=== PATIENT | male | born 1950 | race Caucasian/White ===

== ENCOUNTER 2024-09-20 09:42 | Inpatient (IN) ==
[2024-09-20] MEDS: OPTIRAY 320 125ml IV ONE (10:01)
[2024-09-20 10:07] LABS: iSTAT Creatinine 1.1 mg/dl (0.6-1.3); iSTAT Hemoglobin 14.6 g/dl (14.0-18.0); iSTAT Ionized Calcium 1.22 mmol/l (1.12-1.32); iSTAT Potassium 4.1 mmol/L (3.3-5.0)
[2024-09-20 10:08] LABS: Basophils # (auto) 0.03 K/uL (0.00-0.20); Basophils % (auto) 0.3 %; Eosinophils % (auto) 1.1 %; Hematocrit (blood only) 42.3 % (42.0-52.0); Hemoglobin 14.3 g/dl (14.0-18.0); Immature Granulocytes # (auto) 0.03 K/uL (0.01-0.20); Immature Granulocytes % (auto) 0.3 %; Lymphocytes # (auto) 2.15 K/uL (1.20-3.40); Lymphocytes % (auto) 24.1 %; Mean Corpuscular Hemoglobin 30.5 pg (25.0-34.0); Mean Corpuscular Hgb Conc 33.8 g/dL (32.0-36.0); Mean Corpuscular Volume 90.2 fL (80.0-100.0); Mean Platelet Volume 8.7 fL (9.4-12.4); Monocytes # (auto) 1.02 K/uL (0.11-0.59); Monocytes % (auto) 11.4 %; Neutrophils % (auto) 62.8 %; Platelet Count 214 K/uL (130-400); RDW Coefficient of Variation 12.6 % (11.5-14.5); RDW Standard Deviation 41.5 fL (36.4-46.3); Red Blood Count 4.69 M/uL (4.70-6.10); White Blood Count 8.93 K/ul (4.8-10.8)
[2024-09-20 10:23] LABS: Albumin Globulin Ratio 1.4 (0.9-2); Albumin Level 4.1 gm/dl (3.4-5.0); Bilirubin,Total 0.6 mg/dl (0.2-1.0); Calcium 9.5 mg/dl (8.6-10.3); Creatinine Clr Calc Pharmacy 89.6 ml/min; Magnesium 1.9 mg/dl (1.7-2.4); Potassium 4.1 mmol/L (3.5-5.1); Total Protein 7.1 gm/dl (6.0-8.3)
[2024-09-20 10:29] LABS: Troponin I High Sensitivity 4.5 pg/ml (0-20)
--- NOTE | 2024-09-20 10:30 | CT Scan Report ---
CT head/brain wo con CLINICAL HISTORY: 73 years-old Male with neuro deficit, acute stroke suspected. Acute stroke like sy mptoms TECHNIQUE: Multiple axial CT images of the head were obtained without contrast. A dose lowering tech nique was utilized adhering to the principles of ALARA. COMPARISON: CTA head of same day FINDINGS: No acute intracranial hemorrhage, midline shift, intracranial mass, hydrocephalus, territorial ischem ia or abnormal extra-axial collection. Involutional changes with probable mild chronic microvascular ischemic disease. Small hyperdense focus within the superior left frontal lobe on image 27 series 2 m ay represent a chronic infarct with preserved edge-white differentiation. The study is mildly motion degraded. The calvarium is intact. Small left frontal scalp and periorbital contusions. The paranasal sinuses, mastoid air cells, and middle ear cavities are clear. IMPRESSION: No acute intracranial abnormality. ACT 112: Negative or not required by law. The above report was generated using voice recognition software. It may contain grammatical, syntax o r spelling errors. Electronically signed by: Alex Sawant M.D. 09/20/2024 10:28 AM
[2024-09-20 10:32] LABS: Partial Thromboplastin Ratio 0.9; Partial Thromboplastin Time 25 Seconds (21-31); Prothrombin Time 10.6 Seconds (9.0-12.0)
--- NOTE | 2024-09-20 10:32 | CT Scan Report ---
CT ANGIOGRAPHY OF THE NECK WITH CONTRAST CLINICAL HISTORY: neuro deficit, acute stroke suspected COMPARISON STUDY: No previous studies for comparison. Technique: CT angiography of the carotid and vertebral arteries was obtained using Optiray and 3D rec onstruction on an independent workstation. NASCET criteria was utilized. Automated exposure control was utilized for the study. A dose lowering technique was utilized adhering to the principles of ALA RA. Findings: No cervical spine fractures are present. 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 No cervical lymphadenopathy is present. This exam is moderately compromised by suboptimal opacification and motion artifact. There is extensive noncalcified and calcified plaque wi thin the proximal left internal carotid artery which results in severe stenosis of the proximal left internal carotid artery which extends for approximately 1.8 cm. Vessel measures 0.8 mm in caliber at site of maximal narrowing and 4.9 mm distally. There is also extensive plaque within the proximal rig ht internal carotid artery which results in mild stenosis. The vessel measures 3.3 mm at site of narr owing and 5.9 mm distally. The right vertebral artery is dominant and grossly patent. The left verteb ral artery is diminutive on a congenital basis. There is no aneurysm or definite dissection within th e neck. IMPRESSION: 1. Extensive atherosclerotic plaque within the proximal left internal carotid artery which results in up to 90% stenosis of the vessel, 1.8 cm distal to vessel origin. 2. Extensive plaque within the proximal right internal carotid artery which results in 40% stenosis. 3. Dominant, patent right vertebral artery. 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 4. Exam mildly compromised by artifact, as described above. ACT 112: Negative or not required by law. Electronically signed by: Eliseo Saunders M.D. 09/20/2024 10:30 AM
--- NOTE | 2024-09-20 10:37 | CT Scan Report ---
CT cervical spine wo con CLINICAL HISTORY: 73 years-old Male with fall. Acute head and neck injury status post fall COMPARISON: Head CT of same day. TECHNIQUE: Multiple axial CT images of the cervical spine were obtained without contrast. A dose low ering technique was utilized adhering to the principles of ALARA. FINDINGS: There is pronounced ossification of the posterior longitudinal ligament extending from the C4-C5 level to the C6-C7 interspace. Mild to moderate vertebral disc space narrowing with moderate sp ondylitic spurring and facet arthrosis. Posterior disc osteophyte complex at C2-C3. Multilevel left f oraminal stenosis. No acute fracture or subluxation identified. The cervical soft tissues appear unre markable. The visualized lung apices appear clear. IMPRESSION: 1. No acute cervical spine fracture or subluxation. 2. 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 ACT 112: Negative or not required by law. The above report was generated using voice recognition software. It may contain grammatical, syntax o r spelling errors. Electronically signed by: Alex Sawant M.D. 09/20/2024 10:36 AM
--- NOTE | 2024-09-20 10:37 | XRay Report ---
XR chest 1V portable CLINICAL HISTORY: neuro deficit, acute stroke suspected COMPARISON STUDY: No previous studies for comparison. FINDINGS: Lung volumes are normal. There is no consolidation to suggest pneumonia. Left basilar densi ties favor atelectasis. There is no pneumothorax or pleural effusion. The heart is moderately enlarge d. Mediastinal contours are normal. There is no evidence for pulmonary edema. IMPRESSION: 1. No acute cardiopulmonary findings. 2. Cardiomegaly. 3. Left basilar densities which favor atelectasis. ACT 112: Negative or not required by law. Electronically signed by: Eliseo Saunders M.D. 09/20/2024 10:35 AM
--- NOTE | 2024-09-20 10:37 | CT Scan Report ---
CTA ANGIOGRAPHY OF THE HEAD CLINICAL HISTORY: neuro deficit, acute stroke suspected COMPARISON STUDY: No previous studies for comparison. TECHNIQUE: Helical axial images of the head were obtained following uneventful intravenous administr ation of 112 cc of Optiray. Sagittal and coronal reconstructions were viewed as well as maximal inten sity projections on an independent 3-D workstation. Automated exposure control was utilized for the study. A dose lowering technique was utilized adhering to the principles of ALARA. CT DOSE: 2343.78 mGy.cm FINDINGS: There is a nasal contusion as well as a left forehead contusion. No acute calvarial fractur es are identified. No acute nasal bone fractures are identified. No acute intracranial hemorrhage, mi dline shift or mass effect is present. Ventricular system is normal. Basal cisterns are patent. The b ilateral M1, M2, A1 and A2 segments are patent. Right vertebral artery is dominant. Left vertebral ar vkng is diminutive, likely on a congenital basis. IMPRESSION: 1. No large vessel occlusion. No intracranial aneurysm. 2. Nasal and left forehead contusions. No fractures. ACT 112: Negative or not required by law. Electronically signed by: Eliseo Saunders M.D. 09/20/2024 10:35 AM
--- NOTE | 2024-09-20 10:37 | Emergency Department Note ---
Impression & Plan Fall, Acute left-sided weakness, Abrasion, Carotid artery stenosis ED Provider Note Diagnosis: Fall, left-sided weakness, facial abrasions Disposition: Admission CHIEF COMPLAINT: Fall, left-sided weakness HPI: Patient is a 73-year-old male presenting with fall and left-sided weakness. Patient states he was in the parking lot of a hotel tripped and fell onto his left side. Patient has abrasions left side of his face. Patient denies being on blood thinners. Patient states while he was on the ground for 10 to 15 minutes time yelling for help he could not move his left arm or left leg. Patient states he had decreased sensation of the left arm and left leg. Patient states finally some bystander came by and helped him up and he was unstable on his feet. Patient denies any neck pain. Patient states that the strength in his left leg is completely come back to normal. 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 Patient activated as a stroke alert upon arrival in the emergency room. PAST MEDICAL HISTORY: See Below PAST SURGICAL HISTORY: See Below SOCIAL HISTORY: See Below HOME MEDICATIONS: See Below ALLERGIES: See Below VITALS: See Below PHYSICAL EXAMINATION: GENERAL: Well appearing, well nourished, NAD, non-toxic. EYE EXAM: Normal conjunctiva. OROPHARYNX: Moist mucus membranes. Grossly normal dentition. NECK: Supple, LUNGS: Clear to auscultation. Normal chest wall mechanics. HEART: NSR ABDOMEN: Abdomen soft, non-tender, normo-active bowel sounds, no masses, no rebound or guarding BACK: No CVA TTP. SKIN: Abrasions left side of face UPPER EXTREMITIES: Upper extremities are grossly normal LOWER EXTREMITIES: Grossly normal, no edema. NEURO EXAM: A&O x3,, normal speech, moves all 4 extremities PSYCH: Cooperative MEDICAL DECISION MAKING: History obtained from: Patient ER Course: Patient is 73-year-old male presenting after a fall in a parking lot just prior to arrival. Patient states he laid on the ground for 15 minutes time before someone found him. Patient states during that time patient could not move his left arm or left leg. Patient does not have any cervical thoracic or lumbar spine tenderness. Patient does have abrasions to left side of his face. Patient denies being on any blood thinners. 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 Patient's NIH at this time is 0. Patient was a stroke alert. Patient CT noncontrast shows no intracranial hemorrhage. Patient has no large vessel occlusions. Patient does have blockages of the carotid artery 90%. Patient was made aware of this finding. This finding was also discussed with hospital service. Patient seen by telestroke team please see discussion below. Initial discussion with stroke team at 10 AM. Stroke team started value patient approximately 10:30 AM, discussion with stroke neurologist at approximately 10:45 AM about official recommendations Labs (independently interpreted) are significant for: No significant electrolyte abnormalities Imaging results (independently interpreted): Chest x-ray clear EKG interpretation (independently interpreted): Normal sinus rhythm no ST segment elevation or depression Medications given: Baby aspirin Consultants: Neurologist Dr. Meyer from [place] discussed patient's presentation improving symptoms and potential fall. He saw the patient through video consultation offered TNK to the patient and patient declined. Neurology recommendations are baby aspirin, MRIs of brain and cervical spine and admission to medicine service. Triage Nursing notes reviewed and agree them. Vital Signs: reviewed and remarkable for: no significant abnormalities Past Med/Surg History Problem List (Updated 09/20/24 @ 11:53 by Lalito Muller DO) Carotid artery stenosis (Acute) Abrasion (Acute) Acute left-sided weakness (Acute) Fall (Acute) Social History Smoking Status: Never smoker Feels Safe at Home: Yes Home Meds Home Medications Medication Instructions Recorded Confirmed amlodipine 10 mg tablet 10 mg PO DAILY 09/20/24 09/20/24 bromfenac 0.07 % eye drops 1 drp ophthalmic (eye) DIRECTED 09/20/24 09/20/24 carvedilol 12.5 mg tablet 12.5 mg PO BID 09/20/24 09/20/24 doxazosin 8 mg tablet 8 mg PO DAILY 09/20/24 09/20/24 netarsudil 0.02 %-latanoprost 1 drp OPL HS 09/20/24 09/20/24 0.005 % eye drops ([facility]) olmesartan 40 1 tab PO DAILY 09/20/24 09/20/24 mg-hydrochlorothiazide 12.5 mg tablet rosuvastatin 5 mg tablet 5 mg PO DAILY 09/20/24 09/20/24 Results & Data (ED) Vital Signs Vital Signs - 24 hr 09/20/24 09:58 09/20/24 10:12 09/20/24 10:18 Temperature 36.6 C Temperature Source Skin Pulse Rate 62 69 68 Pulse Rate [Apical] Pulse Rate from SpO2 Sensor 68 Respiratory Rate 18 24 Blood Pressure 127/80 Blood Pressure [Left Arm] Blood Pressure Mean 95 Blood Pressure Mean [Left Arm] Pulse Oximetry 99 98 Oxygen Delivery Method Room Air Sepsis Recent Fever Within 48 Hours No Sepsis New/Unexplained Change in Mental Status No Sepsis Action Taken by Nursing No Action Required 09/20/24 10:31 09/20/24 10:42 Temperature Temperature Source Pulse Rate 66 Pulse Rate [Apical] 71 Pulse Rate from SpO2 Sensor Respiratory Rate 20 15 Blood Pressure 152/88 H Blood Pressure [Left Arm] 147/75 H Blood Pressure Mean 109 Blood Pressure Mean [Left Arm] 99 Pulse Oximetry 97 98 Oxygen Delivery Method Room Air Sepsis Recent Fever Within 48 Hours Sepsis New/Unexplained Change in Mental Status Sepsis Action Taken by Nursing Laboratory Data 09/20/24 09:54 09/20/24 09:54 Lab Results 09/20/24 09/20/24 Range/Units 09:51 09:54 WBC 8.93 (4.8-10.8) K/ul RBC 4.69 L (4.70-6.10) M/uL Hgb 14.3 (14.0-18.0) g/dl POC Hgb 14.6 (14.0-18.0) g/dl Hct 42.3 (42.0-52.0) % POC Hct 43 (42-52) % MCV 90.2 (80.0-100.0) fL MCH 30.5 (25.0-34.0) pg MCHC 33.8 (32.0-36.0) g/dL RDW Std Deviation 41.5 (36.4-46.3) fL RDW Coeff of Michael 12.6 (11.5-14.5) % Plt Count 214 (130-400) K/uL MPV 8.7 L (9.4-12.4) fL Immature Gran % (Auto) 0.3 % Neut % (Auto) 62.8 % Lymph % (Auto) 24.1 % [place] % (Auto) 11.4 % Eos % (Auto) 1.1 % Baso % (Auto) 0.3 % Neut # (Auto) 5.60 (1.40-6.50) K/uL Lymph # (Auto) 2.15 (1.20-3.40) K/uL Boone # (Auto) 1.02 H (0.11-0.59) K/uL Eos # (Auto) 0.10 (0.00-0.50) K/uL Baso # (Auto) 0.03 (0.00-0.20) K/uL Immature Gran # (Auto) 0.03 (0.01-0.20) K/uL PT 10.6 (9.0-12.0) Seconds INR 1.0 (0.9-1.1) APTT 25 (21-31) Seconds PTT Ratio 0.9 POC Sodium 139 (135-144) mmol/L Sodium 138 (136-145) mmol/L POC Potassium 4.1 (3.3-5.0) mmol/L Potassium 4.1 (3.5-5.1) mmol/L POC Chloride 102 (101-112) mmol/L Chloride 104 (98-107) mmol/L Carbon Dioxide 26 (21-32) mmol/L POC Total CO2 23 L (24-31) mmol/L Anion Gap 8 (3-11) POC Anion Gap 19.0 (16-25) mmol/L POC BUN 19 H (7-18) mg/dl BUN 17 (6-23) mg/dl Creatinine 1.06 (0.6-1.4) mg/dl POC Creatinine 1.1 (0.6-1.3) mg/dl Est Cr Clr Drug Dosing 89.6 ml/min eGFR 74.57 BUN/Creatinine Ratio 16.0 (10-20) Glucose 100 H (70-99(Fasting)) mg/dl POC Glucose (other) 104 H (70-99) mg/dl Calcium 9.5 (8.6-10.3) mg/dl POC Ioniz Calcium Johanny 1.22 (1.12-1.32) mmol/l Magnesium 1.9 (1.7-2.4) mg/dl Total Bilirubin 0.6 (0.2-1.0) mg/dl AST 26 (13-39) U/L ALT 24 (7-52) U/L Alkaline Phosphatase 77 (34-104) U/L Troponin I High Sens 4.5 (0-20) pg/ml Total Protein 7.1 (6.0-8.3) gm/dl Albumin 4.1 (3.4-5.0) gm/dl Globulin 3.0 (2.5-4.0) gm/dl Albumin/Globulin Ratio 1.4 (0.9-2) Blood Type A Positive Antibody Screen NEGATIVE Administered Medications Discontinued Medications Aspirin (Aspirin 81 Mg Ectab) 81 mg PO NOW STA Stop: 09/20/24 10:52 Last Admin: 09/20/24 11:15 Dose: 81 mg Documented By: Diphtheria/Pertussis/Tetanus Vacc (Diphther/Tetan/Pertus Vaccine (Tdap, Adol/Adult) 0.5ml) 0.5 ml IM .ONCE ONE Stop: 09/20/24 09:56 Last Admin: 09/20/24 10:45 Dose: Not Given Documented By: Ioversol (Optiray 320 125ml) 112 ml IV ONCE ONE Stop: 09/20/24 10:02 Last Admin: 09/20/24 10:01 Dose: 112 ml Documented By: MELCHOR Imaging Data Radiologist's Impression: Chest X-Ray 09/20/24 09:53 XR chest 1V portable CLINICAL HISTORY: neuro deficit, acute stroke suspected COMPARISON STUDY: No previous studies for comparison. FINDINGS: Lung volumes are normal. There is no consolidation to suggest pneumonia. Left basilar densities favor atelectasis. There is no pneumothorax or pleural effusion. The heart is moderately enlarged. Mediastinal contours are normal. There is no evidence for pulmonary edema. IMPRESSION: 1. No acute cardiopulmonary findings. 2. Cardiomegaly. 3. Left basilar densities which favor atelectasis. ACT 112: Negative or not required by law. Electronically signed by: Eliseo Saunders M.D. 09/20/2024 10:[address] 09/20/24 09:53 CT head/brain wo con CLINICAL HISTORY: 73 years-old Male with neuro deficit, acute stroke suspected. Acute stroke like symptoms TECHNIQUE: Multiple axial CT images of the head were obtained without contrast. A dose lowering technique was utilized adhering to the principles of ALARA. COMPARISON: CTA head of same day FINDINGS: No acute intracranial hemorrhage, midline shift, intracranial mass, hydrocephalus, territorial ischemia or abnormal extra-axial collection. Involutional changes with probable mild chronic microvascular ischemic disease. Small hyperdense focus within the superior left frontal lobe on image 27 series 2 may represent a chronic infarct with preserved edge-white differentiation. The study is mildly motion degraded. The calvarium is intact. Small left frontal scalp and periorbital contusions. The paranasal sinuses, mastoid air cells, and middle ear cavities are clear. IMPRESSION: No acute intracranial abnormality. ACT 112: Negative or not required by law. The above report was generated using voice recognition software. It may contain grammatical, syntax or spelling errors. Electronically signed by: Alex Sawant M.D. 09/20/2024 10:28 AM Head CTA 09/20/24 09:53 CTA ANGIOGRAPHY OF THE HEAD CLINICAL HISTORY: neuro deficit, acute stroke suspected COMPARISON STUDY: No previous studies for comparison. TECHNIQUE: Helical axial images of the head were obtained following uneventful intravenous administration of 112 cc of Optiray. Sagittal and coronal reconstructions were viewed as well as maximal intensity projections on an independent 3-D workstation. Automated exposure control was utilized for the study. A dose lowering technique was utilized adhering to the principles of ALARA. CT DOSE: 2343.78 mGy.cm FINDINGS: There is a nasal contusion as well as a left forehead contusion. No acute calvarial fractures are identified. No acute nasal bone fractures are identified. No acute intracranial hemorrhage, midline shift or mass effect is present. Ventricular system is normal. Basal cisterns are patent. The bilateral M1, M2, A1 and A2 segments are patent. Right vertebral artery is dominant. Left vertebral artery is diminutive, likely on a congenital basis. IMPRESSION: 1. No large vessel occlusion. No intracranial aneurysm. 2. Nasal and left forehead contusions. No fractures. ACT 112: Negative or not required by law. Electronically signed by: Eliseo Saunders M.D. 09/20/2024 10:35 AM Neck CTA 09/20/24 09:53 CT ANGIOGRAPHY OF THE NECK WITH CONTRAST CLINICAL HISTORY: neuro deficit, acute stroke suspected COMPARISON STUDY: No previous studies for comparison. Technique: CT angiography of the carotid and vertebral arteries was obtained using Optiray and 3D reconstruction on an independent workstation. NASCET criteria was utilized. Automated exposure control was utilized for the study. A dose lowering technique was utilized adhering to the principles of ALARA. Findings: No cervical spine fractures are present. 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 No cervical lymphadenopathy is present. This exam is moderately compromised by suboptimal opacification and motion artifact. There is extensive noncalcified and calcified plaque within the proximal left internal carotid artery which results in severe stenosis of the proximal left internal carotid artery which extends for approximately 1.8 cm. Vessel measures 0.8 mm in caliber at site of maximal narrowing and 4.9 mm distally. There is also extensive plaque within the proximal right internal carotid artery which results in mild stenosis. The vessel measures 3.3 mm at site of narrowing and 5.9 mm distally. The right vertebral artery is dominant and grossly patent. The left vertebral artery is diminutive on a congenital basis. There is no aneurysm or definite dissection within the neck. IMPRESSION: 1. Extensive atherosclerotic plaque within the proximal left internal carotid artery which results in up to 90% stenosis of the vessel, 1.8 cm distal to vessel origin. 2. Extensive plaque within the proximal right internal carotid artery which results in 40% stenosis. 3. Dominant, patent right vertebral artery. 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 4. Exam mildly compromised by artifact, as described above. ACT 112: Negative or not required by law. Electronically signed by: Eliseo Saunders M.D. 09/20/2024 10:[address] 09/20/24 09:55 CT cervical spine wo con CLINICAL HISTORY: 73 years-old Male with fall. Acute head and neck injury status post fall COMPARISON: Head CT of same day. TECHNIQUE: Multiple axial CT images of the cervical spine were obtained without contrast. A dose lowering technique was utilized adhering to the principles of ALARA. FINDINGS: There is pronounced ossification of the posterior longitudinal ligament extending from the C4-C5 level to the C6-C7 interspace. Mild to moderate vertebral disc space narrowing with moderate spondylitic spurring and facet arthrosis. Posterior disc osteophyte complex at C2-C3. Multilevel left foraminal stenosis. No acute fracture or subluxation identified. The cervical soft tissues appear unremarkable. The visualized lung apices appear clear. IMPRESSION: 1. No acute cervical spine fracture or subluxation. 2. 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 ACT 112: Negative or not required by law. The above report was generated using voice recognition software. It may contain grammatical, syntax or spelling errors. Electronically signed by: Alex Sawant M.D. 09/20/2024 10:36 AM Discharge Plan Visit Data Chief Complaint: Fall Stated Complaint: FELL, LAC ABOVE LT EYE, LT SIDE WEAK ED Provider: Lalito Muller Discharge Problem: Fall, Acute left-sided weakness, Abrasion, Carotid artery stenosis Patient Disposition: Admitted As Inpatient Discharge Instructions Interventions: ED Discharge Assessment Last Done: 09/20/24 11:43
[2024-09-20] MEDS: DIPHTHER/TETAN/PERTUS Vaccine (Tdap, Adol/Adult) 0.5mL IM ONE (10:45)
[2024-09-20] MEDS: ASPIRIN 81 MG ECTAB PO STA (11:15)
[2024-09-20] MEDS ORDERED: PHARMACIST DISCHARGE MED REC CONSULT PRN (11:42)
--- NOTE | 2024-09-20 13:22 | History & Physical Report ---
Date of Service September 20, 2024 Assessment & Plan (1) Carotid artery stenosis: (2) Abrasion: (3) Acute left-sided weakness: (4) Fall: (5) HTN (hypertension): (6) HLD (hyperlipidemia): Plan Assessment and plan: Rule out CVA/TIA: Bilateral carotid stenosis: Head CT negative, head CTA negative, neck CTA +90% R ICA stenosis & 40% LICA stenosis Check echo/head MRI/cervical spine MRI, consult neuro, consult vascular Check lipid panel/A1c, neurochecksno indication for TNK at this time Baby aspirin daily started, consider Plavix daily Mechanical fall: Head CT negative for acute bleed, check MRI of the cervical spine to rule out injury Check facial x-ray to rule out facial fractures Hx HLD/HTN: Increase rosuvastatin to 20 mg daily, hold hypertensive medication to allow for permissive hypertension x 24 hours A total of 60 minutes was spent on chart review/facilitating plan of care/reviewing diagnostic data/discussion with consultants Full code DVT prophylaxis: Lovenox Admission and Anticipated Discharge Date Admission Date: September 20, 2024 History of Present Illness Chief Complaint: Fall, left-sided weakness Primary Care Provider: JAVIER PCP The patient is a 73-year-old male with a past medical history of HTN, glaucoma, HLD who presents to the ED on 09/20/2024 s/p mechanical fall. Patient reports he was leaving the hotel today, he tripped over a curb and fell right on his face. He denies any dizziness/syncope prior to this. He reports after getting up he felt some left arm and left leg weakness and was unable to keep his balance. He then reported to the ED. He denies any blurry vision/headaches. He denies any prior history of strokes. The patient was a stroke alert on arrival, neuro recommended no TNK, 81 mg of aspirin and MRI of the neck and cervical spine with recent fall Chest x-ray was negative for anything acute Head CT was negative Head CTA was negative for anything acute Neck CTA showed 90% stenosis of the proximal L ICA; 40% stenosis of the right ICA Cervical spine CT was negative for acute fracture on arrival to the ED, labs are fairly unremarkable. On exam, Mild residual left upper extremity weakness noted, left lower extremity weakness has resolved. No other neurodeficits noted The patient will be admitted for rule out stroke Home Medications Medication Instructions Recorded Confirmed Type amlodipine 10 mg tablet 10 mg PO DAILY 09/20/24 09/20/24 History bromfenac 0.07 % eye drops 1 drp ophthalmic (eye) DIRECTED 09/20/24 09/20/24 History carvedilol 12.5 mg tablet 12.5 mg PO BID 09/20/24 09/20/24 History doxazosin 8 mg tablet 8 mg PO DAILY 09/20/24 09/20/24 History netarsudil 0.02 %-latanoprost 1 drp OPL HS 09/20/24 09/20/24 History 0.005 % eye drops ([facility]) olmesartan 40 1 tab PO DAILY 09/20/24 09/20/24 History mg-hydrochlorothiazide 12.5 mg tablet rosuvastatin 5 mg tablet 5 mg PO DAILY 09/20/24 09/20/24 History Past Med/Surg History Problem List (Updated 09/20/24 @ 13:17 by MARIBELL Martinez) HLD (hyperlipidemia) HTN (hypertension) Carotid artery stenosis (Acute) Abrasion (Acute) Acute left-sided weakness (Acute) Fall (Acute) Social History Smoking Status: Never smoker Feels Safe at Home: Yes Review of Systems Review of Systems: All systems reviewed & are unremarkable except as noted in HPI & below Physical Exam Constitutional: WD/WN, vitals as above Eyes: PERRL, conjunctivae normal, anicteric sclerae (Left eye red, face red and bruised) ENMT: external ear and nose normal, oropharynx normal Neck: trachea midline, no thyromegaly Respiratory: normal respiratory effort, lungs clear to auscultation Cardiovascular: RRR, no murmur, no edema Gastrointestinal (Abdomen): normal bowel sounds, soft, nontender, no hepatosplenomegaly Musculoskeletal: no cyanosis or clubbing, extremities motor strength 5/5 Skin: no rashes, warm and dry Neurologic: PERRL, EOMI, accommodation nl, no face palsy, no dysarthria (Left upper extremity weakness, no other neurodeficits) Lymphatic: no cervical or axillary lymphadenopathy Results & Data Results & Data Vital Signs (Past 12 Hours) Vital Signs Temp Pulse Pulse Resp BP BP Pulse Ox 09/20/24 11:54 09/20/24 11:54 73 21 129/64 97 09/20/24 11:19 65 22 125/58 L 98 09/20/24 10:42 66 15 152/88 H 98 09/20/24 10:31 71 20 147/75 H 97 09/20/24 10:18 68 24 98 09/20/24 10:12 36.6 C 69 18 127/80 99 09/20/24 09:58 62 Pulse Ox O2 Del Method O2 Del Method 09/20/24 11:54 97 Room Air 09/20/24 11:54 Room Air 09/20/24 11:19 Room Air 09/20/24 10:42 09/20/24 10:31 Room Air 09/20/24 10:18 09/20/24 10:12 Room Air 09/20/24 09:58 Diagnostic Findings Laboratory Results WBC 8.93 K/ul (4.8-10.8) 09/20/24 09:54 RBC 4.69 M/uL (4.70-6.10) L 09/20/24 09:54 Hgb 14.3 g/dl (14.0-18.0) 09/20/24 09:54 POC Hgb 14.6 g/dl (14.0-18.0) 09/20/24 09:54 Hct 42.3 % (42.0-52.0) 09/20/24 09:54 POC Hct 43 % (42-52) 09/20/24 09:54 MCV 90.2 fL (80.0-100.0) 09/20/24 09:54 MCH 30.5 pg (25.0-34.0) 09/20/24 09:54 MCHC 33.8 g/dL (32.0-36.0) 09/20/24 09:54 RDW Std Deviation 41.5 fL (36.4-46.3) 09/20/24 09:54 RDW Coeff of Michael 12.6 % (11.5-14.5) 09/20/24 09:54 Plt Count 214 K/uL (130-400) 09/20/24 09:54 MPV 8.7 fL (9.4-12.4) L 09/20/24 09:54 Immature Gran % (Auto) 0.3 % 09/20/24 09:54 Neut % (Auto) 62.8 % 09/20/24 09:54 Lymph % (Auto) 24.1 % 09/20/24 09:54 Rowan % (Auto) 11.4 % 09/20/24 09:54 Eos % (Auto) 1.1 % 09/20/24 09:54 Baso % (Auto) 0.3 % 09/20/24 09:54 Neut # (Auto) 5.60 K/uL (1.40-6.50) 09/20/24 09:54 Lymph # (Auto) 2.15 K/uL (1.20-3.40) 09/20/24 09:54 Rowan # (Auto) 1.02 K/uL (0.11-0.59) H 09/20/24 09:54 Eos # (Auto) 0.10 K/uL (0.00-0.50) 09/20/24 09:54 Baso # (Auto) 0.03 K/uL (0.00-0.20) 09/20/24 09:54 Immature Gran # (Auto) 0.03 K/uL (0.01-0.20) 09/20/24 09:54 PT 10.6 Seconds (9.0-12.0) 09/20/24 09:54 INR 1.0 (0.9-1.1) 09/20/24 09:54 APTT 25 Seconds (21-31) 09/20/24 09:54 PTT Ratio 0.9 09/20/24 09:54 POC Sodium 139 mmol/L (135-144) 09/20/24 09:54 Sodium 138 mmol/L (136-145) 09/20/24 09:54 POC Potassium 4.1 mmol/L (3.3-5.0) 09/20/24 09:54 Potassium 4.1 mmol/L (3.5-5.1) 09/20/24 09:54 POC Chloride 102 mmol/L (101-112) 09/20/24 09:54 Chloride 104 mmol/L (98-107) 09/20/24 09:54 Carbon Dioxide 26 mmol/L (21-32) 09/20/24 09:54 POC Total CO2 23 mmol/L (24-31) L 09/20/24 09:54 Anion Gap 8 (3-11) 09/20/24 09:54 POC Anion Gap 19.0 mmol/L (16-25) 09/20/24 09:54 POC BUN 19 mg/dl (7-18) H 09/20/24 09:54 BUN 17 mg/dl (6-23) 09/20/24 09:54 Creatinine 1.06 mg/dl (0.6-1.4) 09/20/24 09:54 POC Creatinine 1.1 mg/dl (0.6-1.3) 09/20/24 09:54 Est Cr Clr Drug Dosing 89.6 ml/min 09/20/24 09:54 eGFR 74.57 09/20/24 09:54 BUN/Creatinine Ratio 16.0 (10-20) 09/20/24 09:54 Glucose 100 mg/dl (70-99(Fasting)) H 09/20/24 09:54 POC Glucose (other) 104 mg/dl (70-99) H 09/20/24 09:54 Calcium 9.5 mg/dl (8.6-10.3) 09/20/24 09:54 POC Ioniz Calcium Johanny 1.22 mmol/l (1.12-1.32) 09/20/24 09:54 Magnesium 1.9 mg/dl (1.7-2.4) 09/20/24 09:54 Total Bilirubin 0.6 mg/dl (0.2-1.0) 09/20/24 09:54 AST 26 U/L (13-39) 09/20/24 09:54 ALT 24 U/L (7-52) 09/20/24 09:54 Alkaline Phosphatase 77 U/L (34-104) 09/20/24 09:54 Troponin I High Sens 4.5 pg/ml (0-20) 09/20/24 09:54 Total Protein 7.1 gm/dl (6.0-8.3) 09/20/24 09:54 Albumin 4.1 gm/dl (3.4-5.0) 09/20/24 09:54 Globulin 3.0 gm/dl (2.5-4.0) 09/20/24 09:54 Albumin/Globulin Ratio 1.4 (0.9-2) 09/20/24 09:54 Blood Type A Positive 09/20/24 09:51 Antibody Screen NEGATIVE 09/20/24 09:51 Impressions Chest X-Ray 09/20/24 09:53 XR chest 1V portable CLINICAL HISTORY: neuro deficit, acute stroke suspected COMPARISON STUDY: No previous studies for comparison. FINDINGS: Lung volumes are normal. There is no consolidation to suggest pneumonia. Left basilar densities favor atelectasis. There is no pneumothorax or pleural effusion. The heart is moderately enlarged. Mediastinal contours are normal. There is no evidence for pulmonary edema. IMPRESSION: 1. No acute cardiopulmonary findings. 2. Cardiomegaly. 3. Left basilar densities which favor atelectasis. ACT 112: Negative or not required by law. Electronically signed by: Eliseo Saunders M.D. 09/20/2024 10:[address] 09/20/24 09:53 CT head/brain wo con CLINICAL HISTORY: 73 years-old Male with neuro deficit, acute stroke suspected. Acute stroke like symptoms TECHNIQUE: Multiple axial CT images of the head were obtained without contrast. A dose lowering technique was utilized adhering to the principles of ALARA. COMPARISON: CTA head of same day FINDINGS: No acute intracranial hemorrhage, midline shift, intracranial mass, hydrocephalus, territorial ischemia or abnormal extra-axial collection. Involutional changes with probable mild chronic microvascular ischemic disease. Small hyperdense focus within the superior left frontal lobe on image 27 series 2 may represent a chronic infarct with preserved edge-white differentiation. The study is mildly motion degraded. The calvarium is intact. Small left frontal scalp and periorbital contusions. The paranasal sinuses, mastoid air cells, and middle ear cavities are clear. IMPRESSION: No acute intracranial abnormality. ACT 112: Negative or not required by law. The above report was generated using voice recognition software. It may contain grammatical, syntax or spelling errors. Electronically signed by: Alex Sawant M.D. 09/20/2024 10:28 AM Head CTA 09/20/24 09:53 CTA ANGIOGRAPHY OF THE HEAD CLINICAL HISTORY: neuro deficit, acute stroke suspected COMPARISON STUDY: No previous studies for comparison. TECHNIQUE: Helical axial images of the head were obtained following uneventful intravenous administration of 112 cc of Optiray. Sagittal and coronal reconstructions were viewed as well as maximal intensity projections on an independent 3-D workstation. Automated exposure control was utilized for the study. A dose lowering technique was utilized adhering to the principles of ALA RA. CT DOSE: 2343.78 mGy.cm FINDINGS: There is a nasal contusion as well as a left forehead contusion. No acute calvarial fractures are identified. No acute nasal bone fractures are identified. No acute intracranial hemorrhage, midline shift or mass effect is present. Ventricular system is normal. Basal cisterns are patent. The bilateral M1, M2, A1 and A2 segments are patent. Right vertebral artery is dominant. Left vertebral artery is diminutive, likely on a congenital basis. IMPRESSION: 1. No large vessel occlusion. No intracranial aneurysm. 2. Nasal and left forehead contusions. No fractures. ACT 112: Negative or not required by law. Electronically signed by: Eliseo Saunders M.D. 09/20/2024 10:35 AM Neck CTA 09/20/24 09:53 CT ANGIOGRAPHY OF THE NECK WITH CONTRAST CLINICAL HISTORY: neuro deficit, acute stroke suspected COMPARISON STUDY: No previous studies for comparison. Technique: CT angiography of the carotid and vertebral arteries was obtained using Optiray and 3D reconstruction on an independent workstation. NASCET criteria was utilized. Automated exposure control was utilized for the study. A dose lowering technique was utilized adhering to the principles of ALARA. Findings: No cervical spine fractures are present. 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 No cervical lymphadenopathy is present. This exam is moderately compromised by suboptimal opacification and motion artifact. There is extensive noncalcified and calcified plaque within the proximal left internal carotid artery which results in severe stenosis of the proximal left internal carotid artery which extends for approximately 1.8 cm. Vessel measures 0.8 mm in caliber at site of maximal narrowing and 4.9 mm distally. There is also extensive plaque within the proximal right internal carotid artery which results in mild stenosis. The vessel measures 3.3 mm at site of narrowing and 5.9 mm distally. The right vertebral artery is dominant and grossly patent. The left vertebral artery is diminutive on a congenital basis. There is no aneurysm or definite dissection within the neck. IMPRESSION: 1. Extensive atherosclerotic plaque within the proximal left internal carotid artery which results in up to 90% stenosis of the vessel, 1.8 cm distal to vessel origin. 2. Extensive plaque within the proximal right internal carotid artery which results in 40% stenosis. 3. Dominant, patent right vertebral artery. 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 4. Exam mildly compromised by artifact, as described above. ACT 112: Negative or not required by law. Electronically signed by: Eliseo Saunders M.D. 09/20/2024 10:[address] 09/20/24 09:55 CT cervical spine wo con CLINICAL HISTORY: 73 years-old Male with fall. Acute head and neck injury status post fall COMPARISON: Head CT of same day. TECHNIQUE: Multiple axial CT images of the cervical spine were obtained without contrast. A dose lowering technique was utilized adhering to the principles of ALARA. FINDINGS: There is pronounced ossification of the posterior longitudinal ligament extending from the C4-C5 level to the C6-C7 interspace. Mild to moderate vertebral disc space narrowing with moderate spondylitic spurring and facet arthrosis. Posterior disc osteophyte complex at C2-C3. Multilevel left foraminal stenosis. No acute fracture or subluxation identified. The cervical soft tissues appear unremarkable. The visualized lung apices appear clear. IMPRESSION: 1. No acute cervical spine fracture or subluxation. 2. 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 ACT 112: Negative or not required by law. The above report was generated using voice recognition software. It may contain grammatical, syntax or spelling errors. Electronically signed by: Alex Sawant M.D. 09/20/2024 10:36 AM Supervising Physician Co-Signing Physician Notes 73-year-old male with PMH of HTN, glaucoma, HLD presented to the ED after mechanical fall. after he got out of his car, he was walking in the curb trying to "dodge" small plants, he tripped and fell onto his face, laid there for about half an hour as he could not stand himself up. After he got help, he reported feeling numbness and tingling in all his extremities and more so on the left side and also felt left-sided weakness. He reports the numbness and tingling on the right side improved within half an hour and on the left side the weakness and tingling sensation improved in 2 to 3 hours. At bedside exam he reported almost improvement in his all the numbness/tingling/weakness sensations. No facial deviation or slurring of speech noted. Telestroke neurology evaluated, recommended baby aspirin. Recommended MRI of neck at cervical spine with MRI brain. Labs and imagings reviewed. Labs fairly WNL. CXR and CT head with no acute finding. CTA head Reveals nasal and left forehead contusions, no fractures. CTA neck 90% stenosis of the proximal left internal carotid artery and 40% stenosis of the proximal right and RIGHT artery. CT C-spine with no fracture. Other imagings final read pending. Mechanical fall, PT/OT. Rule out a stroke, neurology consult, MRI brain, MRI C-spine, lipid panel and A1c. Neurochecks. Baby aspirin daily and vascular consult per telestroke recommendation. Increase rosuvastatin to 20 Mg daily. Permissive hypertension for next 24 hours- hold bp meds. Utilize prn bp meds if SBP > 180 mmHg. speech eval. On exam: GENERAL: Alert and oriented x3. NAD, on RA. HEENT: No pallor, no icterus. Pupils equal, round and reactive to light. Oral mucosa moist. Left facial contusions noted, non tender on exam. inner upper lip cut noted. No head trauma noted. NECK: No JVD, no neck masses. HEART: S1 and S2 heard. Regular rate and rhythm. No murmur, no gallop. RESPIRATORY SYSTEM: Normal AP diameter. No accessory muscle use. No wheezing, no crackles. ABDOMEN: Soft, bowel sounds present, nontender, no distention. CENTRAL NERVOUS SYSTEM: No facial droop. Speech is clear. Obeys simple commands. Moves extremities. power 5/5 all extremities EXTREMITIES: RLE 1+ and LLE trace edema, no erythema seen. I have seen and examined the patient and have discussed the case with the provider above. I agree with the assessment and plan as stated. Time Spent: 30 min.
[2024-09-20] MEDS ORDERED: hydrALAZINE HCL 20 MG/ML VIAL IV PRN (13:40)
--- NOTE | 2024-09-20 13:48 | XRay Report ---
XR facial bones min 3V routine CLINICAL HISTORY: fall COMPARISON: Head CT and CTA of the head performed earlier today. FINDINGS: There is a minimally displaced left nasal bone fracture. No additional facial fractures ar e identified. Orbital floors are intact. No fractures are identified within visualized portions of th e calvarium. Alignment of the temporomandibular joints is anatomic. IMPRESSION: Minimally displaced left nasal bone fracture. No additional facial fractures. ACT 112: Negative or not required by law. Electronically signed by: Eliseo Saunders M.D. 09/20/2024 1:46 PM
--- NOTE | 2024-09-20 19:15 | Magnetic Resonance Report ---
Exam(s): MRI HEAD Without Contrast EXAM: MR Head Without Intravenous Contrast CLINICAL HISTORY: Reason for exam: r/o mri. TECHNIQUE: Magnetic resonance images of the head/brain without intravenous contrast in multiple planes. COMPARISON: CT 09/20/24 FINDINGS: Brain: No diffusion restriction to suggest acute cerebral ischemia. No acute intracranial hemorrhage. No mass-effect or shift. Proximal intracranial flow voids appear normal, with a dominant right vertebral artery. Parenchymal volume normal for age. 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 Scattered FLAIR signal hyperintensity in the cerebral white matter consistent with mild chronic small vessel ischemic change. Ventricles: Unremarkable. No hydrocephalus. Bones/joints: Unremarkable. No acute fracture. Sinuses: Unremarkable as visualized. Mastoid air cells: Unremarkable as visualized. No mastoid effusion. Orbits: Right intraocular lens replacement. IMPRESSION: No acute findings in the head/brain. Electronically signed by: Yon Turner M.D. 09/20/24 19:14 PM
--- NOTE | 2024-09-20 20:07 | Magnetic Resonance Report ---
Exam(s): MRI C SPINE EXAM: MR Cervical Spine Without Intravenous Contrast CLINICAL HISTORY: Reason for exam: fall - stroke alert. TECHNIQUE: Magnetic resonance images of the cervical spine without intravenous contrast in multiple planes. COMPARISON: CT C-spine 09/20/2024 FINDINGS: Ossification of the posterior longitudinal ligament from C4-C7. No acute fracture or spondylolisthesis. Multilevel high-grade canal stenosis but no cord signal abnormality identified. C2-C3: Disc osteophyte complex abutting the ventral cord. Mild canal stenosis. No foraminal stenosis. C3-4: Diffuse disc bulge compressing the cord. Severe canal stenosis. Mild bilateral foraminal stenosis. C4-5: Large left paracentral disc osteophyte and OPLL. Severe spinal canal stenosis. Severe left and mild right foraminal stenosis. C5-6: Left paracentral disc osteophyte and OPLL. Severe spinal canal stenosis. Severe left and moderate right foraminal stenosis. C6-7: Left paracentral disc osteophyte and OPLL. Severe spinal canal stenosis. Severe left and moderate right foraminal stenosis. C7-T1: Trace disc osteophyte. No spinal canal stenosis. No significant foraminal stenosis. 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 No cord signal abnormality. Electronically signed by: Nj Dominguez MD 09/20/24 20:06 PM
[2024-09-21 03:31] VITALS: RESP 18
[2024-09-21 06:36] LABS: Basophils # (auto) 0.04 K/uL (0.00-0.20); Basophils % (auto) 0.5 %; Eosinophils % (auto) 1.2 %; Hematocrit (blood only) 39.2 % (42.0-52.0); Hemoglobin 13.6 g/dl (14.0-18.0); Immature Granulocytes # (auto) 0.03 K/uL (0.01-0.20); Immature Granulocytes % (auto) 0.4 %; Lymphocytes # (auto) 1.88 K/uL (1.20-3.40); Lymphocytes % (auto) 22.4 %; Mean Corpuscular Hgb Conc 34.7 g/dL (32.0-36.0); Mean Corpuscular Volume 89.3 fL (80.0-100.0); Monocytes # (auto) 0.86 K/uL (0.11-0.59); Monocytes % (auto) 10.3 %; Neutrophils # (auto) 5.48 K/uL (1.40-6.50); Neutrophils % (auto) 65.2 %; Platelet Count 215 K/uL (130-400); RDW Coefficient of Variation 12.7 % (11.5-14.5); RDW Standard Deviation 41.8 fL (36.4-46.3); Red Blood Count 4.39 M/uL (4.70-6.10); White Blood Count 8.39 K/ul (4.8-10.8)
[2024-09-21 06:50] LABS: BUN Creatinine Ratio 16.7 (10-20); Chol HDL Ratio 3.1 (0-5); Creatinine Clr Calc Pharmacy 120.5 ml/min; Potassium 3.5 mmol/L (3.5-5.1)
[2024-09-21 06:59] LABS: Estimated Average Glucose 111 mg/dl; Hemoglobin A1C 5.5 % (4.5-5.6)
[2024-09-21] MEDS: ENOXAPARIN INJ 40 MG/0.4 ML SYR SQ SCH (08:36)
[2024-09-21] MEDS: ASPIRIN 81 MG CHEW PO SCH (08:37)
[2024-09-21 09:04] VITALS: O2SAT 97
[2024-09-21] MEDS: ROSUVASTATIN CALCIUM 20 MG TAB PO SCH (09:52)
--- NOTE | 2024-09-21 11:12 | Neurology Consultation ---
Date of Consultation September 21, 2024 Assessment & Plan (1) Carotid artery stenosis: Joe Wiggins is a 73 yo M presenting with L sided weakness after a fall. Unclear if this was a TIA secondary to his R ICA stenosis or more likely, related to his C-spine as he continues to have L hand weakness despite a neg ative MRI. Recommend the following as he is from [place]. -- Local spine surgery follow-up +/- EMG of the LUE -- Local vascular surgery follow-up for the carotid -- Local neurology follow-up -- Continue aspirin and plavix until seen by surgery -- Continue Crestor -- Please contact us with any further questions Telehealth Consultation Telehealth Information Telehealth Information: I performed this visit using a real-time telehealth connection between my location and the patients location ([facility]). After connecting through interactive tele-video, patient was identified by name and date of and/or wristband check.Patient (or authorized healthcare warehouse representative) was informed that this was a telemedicine visit and it was being conducted confidentially over secure lines. My office door was closed and no one else was present in the room with me.Patient (or authorized healthcare warehouse representative) provided consent to proceed with the visit, expressed an understanding of privacy and security of the telemedicine visit, and gave permission to have a hospital warehouse representative in the room in order to assist with the visit and to conduct portions of the visit, as needed. I informed the patient (or authorized healthcare warehouse representative) that I reviewed their record and presented the opportunity for them to ask any questions regarding the visit today. The patient agreed to participate. History of Present Illness Reason for Consultation: L sided weakness Requesting Physician: Dr. Fierro Attending Physician: Haseeb Fierro, DO History of Present Illness Joe Wiggins is a 73 yo M presenting with a fall yesterday with transient L sided weakness. The patient laid on the ground for 30 minutes before being assisted by bystanders. He reports difficulty with his balance over the last few months but worse recently. He has been able to get up and ambulate today. He also reports ongoing L hand weakness but no neck pain or shooting pain/radicular pain into the arm. He lives in [place] and plans to go back as soon as he is released. No hx of stroke in the past, and was not taking any antiplatelet prior to admission. Allergies Allergy/AdvReac Type Severity Reaction Status Date / Time Penicillins Allergy Unknown Verified 09/20/24 21:01 Home Medications Medication Instructions Recorded Confirmed Type amlodipine 10 mg tablet 10 mg PO DAILY 09/20/24 09/20/24 History bromfenac 0.07 % eye drops 1 drp ophthalmic (eye) DIRECTED 09/20/24 09/20/24 History carvedilol 12.5 mg tablet 12.5 mg PO BID 09/20/24 09/20/24 History doxazosin 8 mg tablet 8 mg PO DAILY 09/20/24 09/20/24 History netarsudil 0.02 %-latanoprost 1 drp OPL HS 09/20/24 09/20/24 History 0.005 % eye drops ([facility]) olmesartan 40 1 tab PO DAILY 09/20/24 09/20/24 History mg-hydrochlorothiazide 12.5 mg tablet rosuvastatin 5 mg tablet 5 mg PO DAILY 09/20/24 09/20/24 History Patient History Social History Smoking Status: Never smoker Second Hand Exposure: No; Do You Dip or Chew Tobacco: No; Hx Alcohol Use: Yes Alcohol type: beer Hx Substance Use: No Preferred Language: Uzbek Communication Ability: Effective Quiller Operator Required: No Beliefs That Will Affect Care: None Current Living Situation: Significant Other Feels Safe at Home: Yes Assistive Devices: Glasses Review of Systems + L hand weakness Physical Exam Neurological Examination: Mental Status: Awake and alert. Oriented to person, place, and time. Fluent. Comprehension intact. Affect appropriate. Cranial Nerves: II: pupils 3/3 to 2/2, fregoso grossly intact. III/IV/: Versions intact without nystagmus, no gaze preference. V: Facial sensation symmetric to light touch VII: Facial expression symmetric VIII: Hearing intact to voice Motor: Strength was symmetric and antigravity throughout. Sensory: Sensation to light touch was intact. Coordination: Finger to nose and heel to merrill were intact. Reflexes: Unable to assess over telemedicine Results & Data Vital Signs (Past 12 Hours) Vital Signs Temp Pulse Resp BP Pulse Ox O2 Del Method 09/21/24 09:01 37 C 67 18 116/67 97 Room Air 09/21/24 03:30 36.6 C 73 18 127/64 96 Room Air 09/20/24 23:31 36.3 C L 65 19 122/67 96 Room Air Laboratory Results Abnormal lab results 09/21/24 Range/Units 05:53 RBC 4.39 L (4.70-6.10) M/uL Hgb 13.6 L (14.0-18.0) g/dl Hct 39.2 L (42.0-52.0) % MPV 9.0 L (9.4-12.4) fL [place] # (Auto) 0.86 H (0.11-0.59) K/uL Glucose 108 H (70-99(Fasting)) mg/dl Diagnostic Findings MRI brain - Unremarkable MR C-spine - significant cervical stenosis CTA - Severe R ICA stenosis
[2024-09-21 11:17] VITALS: BP 107/63; PULSE 62; TEMP 98.4
[2024-09-21] MEDS: STROKE PATIENT DISCHARGE STA (12:54)
--- NOTE | 2024-09-21 13:02 | Pharmacy Report ---
- Date of Service September 21, 2024 - Pharmacy CVA/TIA Medication Review Medications to Prevent Stroke handout has been added to the patients discharge packet. Antiplatelet(s) * Aspirin 81 mg po daily * Plavix 75 mg po daily Cholesterol * High intensity statin: rosuvastatin 20 mg daily DVT Prophylaxis * SCD knee Therapeutic Anticoagulation * No history of Afib/Aflutter noted Type 2 Diabetes * Patient does not have T2DM
--- NOTE | 2024-09-21 14:04 | Discharge Summary ---
Discharge Summary Date of Service September 21, 2024 HOSPITAL COURSE: Pt was admitted to the telemetry unit. He was place on ASA and Plavix. Brain MRI was negative for stroke. Neurology was consulted. TNK was not indicated. Head CT negative, head CTA negative, neck CTA showed +90% R ICA stenosis & 40% LICA stenosis. Echo showed a normal LVEF. Cervial spine MRI showed severe stenosis. Neurology felt his hand weakness was more from the stenosis. His Crestor does was increased to 20 mg daily. Neurology recommended Vascular Surgery and Spine surgery follow up in addition to an EMG as an out patient. PT and OT were consulted. He was sable for discharge on this date. He was using a wheeled walker. Principal Dx & Hospital Course #1 = Principal Diagnosis (1) Carotid artery stenosis: (2) Abrasion: (3) Acute left-sided weakness: (4) Fall: (5) HTN (hypertension): (6) HLD (hyperlipidemia): Plan Assessment and plan: Rule out CVA/TIA: Bilateral carotid stenosis: Head CT negative, head CTA negative, neck CTA +90% R ICA stenosis & 40% LICA stenosis Check echo/head MRI/cervical spine MRI, consult neuro, consult vascular Check lipid panel/A1c, neurochecksno indication for TNK at this time Baby aspirin daily started, consider Plavix daily Mechanical fall: Head CT negative for acute bleed, check MRI of the cervical spine to rule out injury Check facial x-ray to rule out facial fractures Hx HLD/HTN: Increase rosuvastatin to 20 mg daily, hold hypertensive medication to allow for permissive hypertension x 24 hours A total of 55 minutes was spent on chart review/facilitating plan of care/reviewing diagnostic data/discussion with consultants and discharge planning Full code DVT prophylaxis: Lovenox Notes For Next Care Provider F/U with Cardiology, Vascular surgery, Spine surgery and Neurology Consider EMG of LUE if hand weakness persists Home PT and OT Use the wheeled walker until PT eval Medication Changes From Visit Increase Crestor to 20 mg daily Take Plavix 75 mg daily until further recommendation from Neurology and Cardiology Take ASA81 mg daily Admission HPI Per Admitting Provider The patient is a 73-year-old male with a past medical history of HTN, glaucoma, HLD who presents to the ED on 09/20/2024 s/p mechanical fall. Patient reports he was leaving the hotel today, he tripped over a curb and fell right on his face. He denies any dizziness/syncope prior to this. He reports after getting up he felt some left arm and left leg weakness and was unable to keep his balance. He then reported to the ED. He denies any blurry vision/headaches. He denies any prior history of strokes. The patient was a stroke alert on arrival, neuro recommended no TNK, 81 mg of aspirin and MRI of the neck and cervical spine with recent fall Chest x-ray was negative for anything acute Head CT was negative Head CTA was negative for anything acute Neck CTA showed 90% stenosis of the proximal L ICA; 40% stenosis of the right ICA Cervical spine CT was negative for acute fracture on arrival to the ED, labs are fairly unremarkable. On exam, Mild residual left upper extremity weakness noted, left lower extremity weakness has resolved. No other neurodeficits noted The patient will be admitted for rule out stroke Discharge Exam General- adult , NAD Head- atraumatic Eyes- PERRL, EOMI, anicteric ENT- oropharynx clear Neck- supple, no JVD, no adenopathy, no thyromegaly; carotids +2/2, no bruits ap preciated Lungs- clear to auscultation and percussion Heart- regular rhythm; no murmur, no gallop, no rub appreciated Abdomen- normal bowel sounds, soft, nontender, no masses or hepatosplenomegaly Extremities- no pretibial edema, no calf tenderness; peripheral pulses intact Neuro- alert, oriented x 3; PERRL, EOMI; no facial palsy; no dysarthria; motor 5/5 bilaterally except Left hand strength 4/5. no cogwheel rigidity; patellar DTRs +2/2; toes downgoing bilaterally; finger to nose intact bilaterally Skin- warm & dry Updated Medication List Medication Instructions Recorded Confirmed Type amlodipine 10 mg tablet 10 mg PO DAILY 09/20/24 09/20/24 History bromfenac 0.07 % eye drops 1 drp ophthalmic (eye) DIRECTED 09/20/24 09/20/24 History carvedilol 12.5 mg tablet 12.5 mg PO BID 09/20/24 09/20/24 History doxazosin 8 mg tablet 8 mg PO DAILY 09/20/24 09/20/24 History netarsudil 0.02 %-latanoprost 1 drp OPL HS 09/20/24 09/20/24 History 0.005 % eye drops ([facility]) olmesartan 40 1 tab PO DAILY 09/20/24 09/20/24 History mg-hydrochlorothiazide 12.5 mg tablet aspirin 81 mg chewable tablet 81 mg PO DAILY #90 tabs 09/21/24 Rx ([facility]) clopidogrel 75 mg tablet (Plavix) 75 mg PO DAILY #60 tabs 09/21/24 Rx rosuvastatin 20 mg tablet 20 mg PO QAM #90 tabs 09/21/24 Rx Hospital Stay Data Consultations 09/20/24 10:59 ED Decision to Admit Stat 09/20/24 11:42 Consult Neurology Routine 09/20/24 11:57 Consult Vascular Surgery Routine Procedures Performed Laboratory Results WBC 8.39 K/ul (4.8-10.8) 09/21/24 05:53 RBC 4.39 M/uL (4.70-6.10) L 09/21/24 05:53 Hgb 13.6 g/dl (14.0-18.0) L 09/21/24 05:53 POC Hgb 14.6 g/dl (14.0-18.0) 09/20/24 09:54 Hct 39.2 % (42.0-52.0) L 09/21/24 05:53 POC Hct 43 % (42-52) 09/20/24 09:54 MCV 89.3 fL (80.0-100.0) 09/21/24 05:53 MCH 31.0 pg (25.0-34.0) 09/21/24 05:53 MCHC 34.7 g/dL (32.0-36.0) 09/21/24 05:53 RDW Std Deviation 41.8 fL (36.4-46.3) 09/21/24 05:53 RDW Coeff of Michael 12.7 % (11.5-14.5) 09/21/24 05:53 Plt Count 215 K/uL (130-400) 09/21/24 05:53 MPV 9.0 fL (9.4-12.4) L 09/21/24 05:53 Immature Gran % (Auto) 0.4 % 09/21/24 05:53 Neut % (Auto) 65.2 % 09/21/24 05:53 Lymph % (Auto) 22.4 % 09/21/24 05:53 [place] % (Auto) 10.3 % 09/21/24 05:53 Eos % (Auto) 1.2 % 09/21/24 05:53 Baso % (Auto) 0.5 % 09/21/24 05:53 Neut # (Auto) 5.48 K/uL (1.40-6.50) 09/21/24 05:53 Lymph # (Auto) 1.88 K/uL (1.20-3.40) 09/21/24 05:53 [place] # (Auto) 0.86 K/uL (0.11-0.59) H 09/21/24 05:53 Eos # (Auto) 0.10 K/uL (0.00-0.50) 09/21/24 05:53 Baso # (Auto) 0.04 K/uL (0.00-0.20) 09/21/24 05:53 Immature Gran # (Auto) 0.03 K/uL (0.01-0.20) 09/21/24 05:53 PT 10.6 Seconds (9.0-12.0) 09/20/24 09:54 INR 1.0 (0.9-1.1) 09/20/24 09:54 APTT 25 Seconds (21-31) 09/20/24 09:54 PTT Ratio 0.9 09/20/24 09:54 POC Sodium 139 mmol/L (135-144) 09/20/24 09:54 Sodium 139 mmol/L (136-145) 09/21/24 05:53 POC Potassium 4.1 mmol/L (3.3-5.0) 09/20/24 09:54 Potassium 3.5 mmol/L (3.5-5.1) 09/21/24 05:53 POC Chloride 102 mmol/L (101-112) 09/20/24 09:54 Chloride 105 mmol/L (98-107) 09/21/24 05:53 Carbon Dioxide 25 mmol/L (21-32) 09/21/24 05:53 POC Total CO2 23 mmol/L (24-31) L 09/20/24 09:54 Anion Gap 9 (3-11) 09/21/24 05:53 POC Anion Gap 19.0 mmol/L (16-25) 09/20/24 09:54 POC BUN 19 mg/dl (7-18) H 09/20/24 09:54 BUN 13 mg/dl (6-23) 09/21/24 05:53 Creatinine 0.78 mg/dl (0.6-1.4) 09/21/24 05:53 POC Creatinine 1.1 mg/dl (0.6-1.3) 09/20/24 09:54 Est Cr Clr Drug Dosing 120.5 ml/min 09/21/24 05:53 eGFR 94.75 09/21/24 05:53 BUN/Creatinine Ratio 16.7 (10-20) 09/21/24 05:53 Glucose 108 mg/dl (70-99(Fasting)) H 09/21/24 05:53 POC Glucose (other) 104 mg/dl (70-99) H 09/20/24 09:54 Estimat Average Glucose 111 mg/dl 09/21/24 05:53 Hemoglobin A1c 5.5 % (4.5-5.6) 09/21/24 05:53 Calcium 9.0 mg/dl (8.6-10.3) 09/21/24 05:53 POC Ioniz Calcium Johanny 1.22 mmol/l (1.12-1.32) 09/20/24 09:54 Magnesium 1.9 mg/dl (1.7-2.4) 09/20/24 09:54 Total Bilirubin 0.6 mg/dl (0.2-1.0) 09/20/24 09:54 AST 26 U/L (13-39) 09/20/24 09:54 ALT 24 U/L (7-52) 09/20/24 09:54 Alkaline Phosphatase 77 U/L (34-104) 09/20/24 09:54 Troponin I High Sens 4.5 pg/ml (0-20) 09/20/24 09:54 Total Protein 7.1 gm/dl (6.0-8.3) 09/20/24 09:54 Albumin 4.1 gm/dl (3.4-5.0) 09/20/24 09:54 Globulin 3.0 gm/dl (2.5-4.0) 11/12/24 09:54 Albumin/Globulin Ratio 1.4 (0.9-2) 09/20/24 09:54 Triglycerides 104 mg/dl (0-150) 09/21/24 05:53 Cholesterol 117 mg/dl (0-200) 09/21/24 05:53 LDL Cholesterol, Calc 58 mg/dl 09/21/24 05:53 VLDL Cholesterol, Calc 21 mg/dl (0-30) 09/21/24 05:53 HDL Cholesterol 38 mg/dl 09/21/24 05:53 Cholesterol/HDL Ratio 3.1 (0-5) 09/21/24 05:53 Blood Type A Positive 09/20/24 09:51 Antibody Screen NEGATIVE 09/20/24 09:51 Impressions Chest X-Ray 09/20/24 09:53 XR chest 1V portable CLINICAL HISTORY: neuro deficit, acute stroke suspected COMPARISON STUDY: No previous studies for comparison. FINDINGS: Lung volumes are normal. There is no consolidation to suggest pneumonia. Left basilar densities favor atelectasis. There is no pneumothorax or pleural effusion. The heart is moderately enlarged. Mediastinal contours are normal. There is no evidence for pulmonary edema. IMPRESSION: 1. No acute cardiopulmonary findings. 2. Cardiomegaly. 3. Left basilar densities which favor atelectasis. ACT 112: Negative or not required by law. Electronically signed by: Eliseo Saunders M.D. 09/20/2024 10:[address] 09/20/24 09:53 CT head/brain wo con CLINICAL HISTORY: 73 years-old Male with neuro deficit, acute stroke suspected. Acute stroke like symptoms TECHNIQUE: Multiple axial CT images of the head were obtained without contrast. A dose lowering technique was utilized adhering to the principles of ALARA. COMPARISON: CTA head of same day FINDINGS: No acute intracranial hemorrhage, midline shift, intracranial mass, hydrocephalus, territorial ischemia or abnormal extra-axial collection. Involutional changes with probable mild chronic microvascular ischemic disease. Small hyperdense focus within the superior left frontal lobe on image 27 series 2 may represent a chronic infarct with preserved edge-white differentiation. The study is mildly motion degraded. The calvarium is intact. Small left frontal scalp and periorbital contusions. The paranasal sinuses, mastoid air cells, and middle ear cavities are clear. IMPRESSION: No acute intracranial abnormality. ACT 112: Negative or not required by law. The above report was generated using voice recognition software. It may contain grammatical, syntax or spelling errors. Electronically signed by: Alex Sawant M.D. 09/20/2024 10:28 AM Head CTA 09/20/24 09:53 CTA ANGIOGRAPHY OF THE HEAD CLINICAL HISTORY: neuro deficit, acute stroke suspected COMPARISON STUDY: No previous studies for comparison. TECHNIQUE: Helical axial images of the head were obtained following uneventful intravenous administration of 112 cc of Optiray. Sagittal and coronal reconstructions were viewed as well as maximal intensity projections on an independent 3-D workstation. Automated exposure control was utilized for the study. A dose lowering technique was utilized adhering to the principles of ALARA. CT DOSE: 2343.78 mGy.cm FINDINGS: There is a nasal contusion as well as a left forehead contusion. No acute calvarial fractures are identified. No acute nasal bone fractures are identified. No acute intracranial hemorrhage, midline shift or mass effect is present. Ventricular system is normal. Basal cisterns are patent. The bilateral M1, M2, A1 and A2 segments are patent. Right vertebral artery is dominant. Left vertebral artery is diminutive, likely on a congenital basis. IMPRESSION: 1. No large vessel occlusion. No intracranial aneurysm. 2. Nasal and left forehead contusions. No fractures. ACT 112: Negative or not required by law. Electronically signed by: Eliseo Saunders M.D. 09/20/2024 10:35 AM Neck CTA 09/20/24 09:53 CT ANGIOGRAPHY OF THE NECK WITH CONTRAST CLINICAL HISTORY: neuro deficit, acute stroke suspected COMPARISON STUDY: No previous studies for comparison. Technique: CT angiography of the carotid and vertebral arteries was obtained using Optiray and 3D reconstruction on an independent workstation. NASCET criteria was utilized. Automated exposure control was utilized for the study. A dose lowering technique was utilized adhering to the principles of ALARA. Findings: No cervical spine fractures are present. 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 No cervical lymphadenopathy is present. This exam is moderately compromised by suboptimal opacification and motion artifact. There is extensive noncalcified and calcified plaque within the proximal left internal carotid artery which results in severe stenosis of the proximal left internal carotid artery which extends for approximately 1.8 cm. Vessel measures 0.8 mm in caliber at site of maximal narrowing and 4.9 mm distally. There is also extensive plaque within the proximal right internal carotid artery which results in mild stenosis. The vessel measures 3.3 mm at site of narrowing and 5.9 mm distally. The right vertebral artery is dominant and grossly patent. The left vertebral artery is diminutive on a congenital basis. There is no aneurysm or definite dissection within the neck. IMPRESSION: 1. Extensive atherosclerotic plaque within the proximal left internal carotid artery which results in up to 90% stenosis of the vessel, 1.8 cm distal to vessel origin. 2. Extensive plaque within the proximal right internal carotid artery which results in 40% stenosis. 3. Dominant, patent right vertebral artery. 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 4. Exam mildly compromised by artifact, as described above. ACT 112: Negative or not required by law. Electronically signed by: Eliseo Saunders M.D. 09/20/2024 10:[address] 09/20/24 09:55 CT cervical spine wo con CLINICAL HISTORY: 73 years-old Male with fall. Acute head and neck injury status post fall COMPARISON: Head CT of same day. TECHNIQUE: Multiple axial CT images of the cervical spine were obtained without contrast. A dose lowering technique was utilized adhering to the principles of ALARA. FINDINGS: There is pronounced ossification of the posterior longitudinal ligament extending from the C4-C5 level to the C6-C7 interspace. Mild to moderate vertebral disc space narrowing with moderate spondylitic spurring and facet arthrosis. Posterior disc osteophyte complex at C2-C3. Multilevel left foraminal stenosis. No acute fracture or subluxation identified. The cervical soft tissues appear unremarkable. The visualized lung apices appear clear. IMPRESSION: 1. No acute cervical spine fracture or subluxation. 2. 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 ACT 112: Negative or not required by law. The above report was generated using voice recognition software. It may contain grammatical, syntax or spelling errors. Electronically signed by: Alex Sawant M.D. 09/20/2024 10:36 AM Face X-Ray 09/20/24 11:31 XR facial bones min 3V routine CLINICAL HISTORY: fall COMPARISON: Head CT and CTA of the head performed earlier today. FINDINGS: There is a minimally displaced left nasal bone fracture. No additional facial fractures are identified. Orbital floors are intact. No fractures are identified within visualized portions of the calvarium. Alignment of the temporomandibular joints is anatomic. IMPRESSION: Minimally displaced left nasal bone fracture. No additional facial fractures. ACT 112: Negative or not required by law. Electronically signed by: Eliseo Saunders M.D. 09/20/2024 1:46 PM Brain MRI 09/20/24 11:42 Exam(s): MRI HEAD Without Contrast EXAM: MR Head Without Intravenous Contrast CLINICAL HISTORY: Reason for exam: r/o mri. TECHNIQUE: Magnetic resonance images of the head/brain without intravenous contrast in multiple planes. COMPARISON: CT 09/20/24 FINDINGS: Brain: No diffusion restriction to suggest acute cerebral ischemia. No acute intracranial hemorrhage. No mass-effect or shift. Proximal intracranial flow voids appear normal, with a dominant right vertebral artery. Parenchymal volume normal for age. 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 Scattered FLAIR signal hyperintensity in the cerebral white matter consistent with mild chronic small vessel ischemic change. Ventricles: Unremarkable. No hydrocephalus. Bones/joints: Unremarkable. No acute fracture. Sinuses: Unremarkable as visualized. Mastoid air cells: Unremarkable as visualized. No mastoid effusion. Orbits: Right intraocular lens replacement. IMPRESSION: No acute findings in the head/brain. Electronically signed by: Yon Turner M.D. 09/20/24 19:14 PM Cervical Spine MRI 09/20/24 11:57 Exam(s): MRI C SPINE EXAM: MR Cervical Spine Without Intravenous Contrast CLINICAL HISTORY: Reason for exam: fall - stroke alert. TECHNIQUE: Magnetic resonance images of the cervical spine without intravenous contrast in multiple planes. COMPARISON: CT C-spine 09/20/2024 FINDINGS: Ossification of the posterior longitudinal ligament from C4-C7. No acute fracture or spondylolisthesis. Multilevel high-grade canal stenosis but no cord signal abnormality identified. C2-C3: Disc osteophyte complex abutting the ventral cord. Mild canal stenosis. No foraminal stenosis. C3-4: Diffuse disc bulge compressing the cord. Severe canal stenosis. Mild bilateral foraminal stenosis. C4-5: Large left paracentral disc osteophyte and OPLL. Severe spinal canal stenosis. Severe left and mild right foraminal stenosis. C5-6: Left paracentral disc osteophyte and OPLL. Severe spinal canal stenosis. Severe left and moderate right foraminal stenosis. C6-7: Left paracentral disc osteophyte and OPLL. Severe spinal canal stenosis. Severe left and moderate right foraminal stenosis. C7-T1: Trace disc osteophyte. No spinal canal stenosis. No significant foraminal stenosis. 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 No cord signal abnormality. Electronically signed by: Nj Dominguez MD 09/20/24 20:06 PM Diagnostic Imagining Performed 09/20/24 09:53 CT angio head w con Stat CT angio neck with con Stat CT head/brain wo con Stat 09/20/24 09:55 CT cervical spine wo con Stat 09/20/24 11:42 MRI Brain [MR brain wo con] Routine 09/20/24 11:57 MR cervical spine wo con Routine Pending Results Patient Have Any Pending Studies at Discharge: No Discharge Instructions Given to Patient (Per Discharging Provider) F/U with Cardiology, Neurology, Vascular surgery and spine surgery F/U with PT/ OT Continue Aspirin 81 mg daily Take Plavix until further advice from trimmer operator Increase the Crestor to 20 mg daily Consider DTAP Total Time Total Time Spent Total Time Spent (In Minutes): 55 minutes
[2024-09-21] MEDS ORDERED: NETARSUDIL MESYLAT/LATANOPROST 37 DROPS/2.5 ML BTL OPL SCH (21:00)
--- NOTE | 2024-09-22 08:59 | Electrocardiogram Report ---
Test Reason : Blood Pressure : */* mmHG Vent. Rate : 80 BPM Atrial Rate : 80 BPM P-R Int : 272 ms QRS Dur : 108 ms QT Int : 384 ms P-R-T Axes : 68 -41 37 degrees QTcB Int : 442 ms Sinus rhythm with 1st degree A-V block Left axis deviation Abnormal ECG When compared with ECG of 20-Sep-2024 09:54, No significant change Confirmed by Abebe El ([id number]) on 09/22/2024 8:59:37 AM Referred By: REFERRED SELF Confirmed By: Abebe El
--- NOTE | 2024-09-22 15:18 | Electrocardiogram Report ---
Test Reason : Blood Pressure : */* mmHG Vent. Rate : 62 BPM Atrial Rate : 62 BPM P-R Int : 246 ms QRS Dur : 110 ms QT Int : 442 ms P-R-T Axes : 114 -20 40 degrees QTcB Int : 448 ms Sinus rhythm with 1st degree A-V block Otherwise normal ECG No previous ECGs available Confirmed by Abebe El ([id number]) on 09/22/2024 3:18:23 PM Referred By: REFERRED SELF Confirmed By: Abebe El
--- NOTE | 2024-09-22 16:22 | Electrocardiogram Report ---
Test Reason : Blood Pressure : */* mmHG Vent. Rate : 62 BPM Atrial Rate : 62 BPM P-R Int : 238 ms QRS Dur : 98 ms QT Int : 426 ms P-R-T Axes : 47 -18 41 degrees QTcB Int : 432 ms Sinus rhythm with 1st degree A-V block Otherwise normal ECG No previous ECGs available Confirmed by Abebe El ([id number]) on 09/22/2024 4:21:58 PM Referred By: REFERRED SELF Confirmed By: Abebe El
== END 2024-09-21 13:35 | disposition home or self-care (01) | DRG 68 ==
LOC: ED 09:42 → EDINP 11:07 → SUATTDRO 11:07 → EDINP 11:43 → 2E 19:44